=== PATIENT | female | born 1970 | race Caucasian/White ===

== ENCOUNTER 2017-06-22 10:27 | Day surgery (SDC) | payer BC ==
[~2017-06-22 10:27] MED LIST: Lidocaine 1% 50 ML MDV ONE; Silver Nitrate Applicator Each ONE
[2017-06-22] MEDS ORDERED: Lactated Ringers 1,000 ML IV SCH (10:30)
[2017-06-22] MEDS ORDERED: Propofol 200 MG/20 ML SDV ONE ×2 (11:27→12:19)
[2017-06-22] MEDS ORDERED: fentaNYL 100 MCG/2 ML SDV ONE ×2 (11:27→12:39)
[2017-06-22] MEDS ORDERED: Midazolam 1 MG/ML 2 ML SDV ONE (11:27)
--- NOTE | 2017-06-22 12:54 | PCM.PRNOTE ---
- Free Text/Narrative Note: D&C & Hysteroscopy Description: Enlarged uterus, AUB SURGEON Jordana Marcano ANESTHESIA local with sedation PREOPERATIVE DIAGNOSES: 1. Enlarged uterus. 2. AUB POSTOPERATIVE DIAGNOSES: 1. Enlarged uterus. 2. AUB 3. Endometrial polyps PROCEDURE PERFORMED: 1. Dilatation and curettage. 2. Hysteroscopy. 3. Cervical Block GROSS FINDINGS: Uterus was anteverted, enlarged, mild descent, small perineal body, endometrial polyps throughou the cavity, thickened endometrium PROCEDURE: The patient was taken to the operating room where she was properly prepped and draped in sterile manner under general anesthesia. After bimanual examination, the cervix was exposed with a weighted vaginal speculum and the anterior lip of the cervix grasped with a vulsellum tenaculum. The uterus was sounded to a depth of 11 cm. The endocervical canal was then progressively dilated with Hanks and Hegar dilators to a #10 Hegar. The [facility] hysteroscope was then introduced into the uterine cavity using sterile saline solution as a distending media and with attached video camera. The endometrial cavity was distended with fluids and the cavity visualized. Multiple irregular areas of polyps were noted throughout the cavity. A moderate amount of proliferative appearing endometrium was noted. The patient tolerated the procedure well. Several pictures were taken of the endometrial cavity and the hysteroscope removed from the cavity. A large sharp curet was then used to obtain a moderate amount of tissue, which was the sent to pathologist for analysis. The instrument was removed from the vaginal vault. The patient was sent to recovery area in satisfactory postoperative condition.
[2017-06-22] MEDS ORDERED: fentaNYL 100 MCG/2 ML SDV IVPUSH ONE (12:58)
[2017-06-22] MEDS ORDERED: Acetaminophen/oxyCODONE 325-5 MG Tab PO ONE (13:56)
[2017-06-22 14:32] VITALS: BP 112/76
== END 2017-06-22 14:40 | disposition home or self-care (01) ==
LOC: JP.SDS 10:27
PROVIDERS: ATTEND Obstetrics & Gynecology
DX: N71.1 Chronic inflammatory disease of uterus (principal); Z87.891 Personal history of nicotine dependence; Z88.8 Allergy status to other drugs, medicaments and biological substances
CPT/HCPCS: 58558; 88305; A9270; J2250; J2704; J3010; J7120